=== PATIENT | male | born 1970 | race Caucasian/White ===

== ENCOUNTER → 2024-02-15 | Outpatient (CLI) | payer BC ==
[2024-02-15 12:24] LABS: BASOPHILS ABSOLUTE AUTO 0.03 K/mm3 (0.00-0.23); BASOPHILS PERCENT AUTO 1 % (0-2); EOSINOPHILS ABSOLUTE AUTO 0.24 K/mm3 (0.00-0.68); EOSINOPHILS PERCENT AUTO 4 % (0-6); Hematocrit 43.2 % (37.0-53.0); Hemoglobin 14.5 g/dL (13.5-17.5); IMMATURE GRAN ABSOLUTE AUTO 0.03 K/mm3 (0.00-0.10); IMMATURE GRAN PERCENT AUTO 1 % (0-1); LYMPHOCYTES PERCENT AUTO 21 % (21-46); MONOCYTES ABSOLUTE AUTO 0.44 K/mm3 (0.16-1.47); MONOCYTES PERCENT AUTO 8 % (4-13); Mean Corpuscular HGB 29.7 pg (26.0-34.0); Mean Corpuscular HGB Conc 33.6 g/dL (31.5-36.5); Mean Corpuscular Volume 89 fL (80-100); Mean Platelet Volume 9.1 fL (9.1-12.4); NEUTROPHILS ABSOLUTE AUTO 3.88 K/mm3 (1.96-9.15); NEUTROPHILS PERCENT AUTO 67 % (41-73); Platelet Count 241 K/mm3 (150-400); RDW Coefficient Variation 12.9 % (11.7-14.2); RDW Standard Deviation 41.7 fL (35.1-46.3); Red Blood Cell Count 4.88 M/mm3 (4.30-5.90); White Blood Cell Count 5.82 K/mm3 (4.00-11.30)
== END | disposition home or self-care (01) ==
LOC: LAB SHORT 12:19
PROVIDERS: Physician Assistant Surgical
DX: M79.89 Other specified soft tissue disorders (principal)
CPT/HCPCS: 84550; 85025

== ENCOUNTER 2024-03-10 07:03 | Day surgery (SDC) | payer BC ==
[~2024-03-10] VITALS: Ht 180.3 cm; Wt 137.2 kg
[2024-03-10] MEDS ORDERED: FentaNYL Citrate 50 MCG/ML 2 ML Injection ONE ×3 (08:28→11:50)
[2024-03-10] MEDS ORDERED: Midazolam HCl 1MG / ML 2ML Vial ONE (08:28)
[2024-03-10] MEDS ORDERED: Bupivacaine 0.5% HCl 5 MG/ML 30MLVIAL ONE (08:28)
[2024-03-10] MEDS ORDERED: XARELTO20 MG PO (08:33)
[2024-03-10] MEDS ORDERED: LOSARTAN-HCTZ1 EAC5 PO (08:34)
[2024-03-10] MEDS ORDERED: EUTHYROX125 MCG PO (08:35)
[2024-03-10] MEDS ORDERED: CeFAZolin Sodium 3,000 MG in NS 100 ML IV SCH (08:45)
[2024-03-10] MEDS ORDERED: Lactated Ringer's 1,000 ML IV ONE ×2 (08:46)
[2024-03-10] MEDS ORDERED: propofoL 20 ML IV ONE (09:25)
--- NOTE | 2024-03-10 09:30 | NUR ---
03/10/24 0930 Lilo Leroy PT TOLERATED BLOCK WELL. PULSE OX AND BLOOD PRESSURE WAS MONITORED. DR. MARIN PERFORMED THE BLOCK. VSS, PT ABLE TO MAKE HIS NEEDS KNOWN.
[2024-03-10] MEDS ORDERED: Dexamethasone Sod Phos 10 MG/ML 1ML VIAL ONE (09:39)
[2024-03-10] MEDS ORDERED: Ondansetron HCl 2 MG / ML 2ML Vial ONE (09:49)
--- NOTE | 2024-03-10 09:55 | NUR ---
03/10/24 0955 Tamra Beltran 0.15ML OF EPI (1MG/ML) ADDED TO 0.5% BUPIVACAINE (30ML) TO MAKE BUPIVACAINE 0.5% WITH EPI 1:200,00.
[2024-03-10] MEDS ORDERED: Bupivacaine 0.5% HCl 5 MG/ML 30MLVIAL INJ ONE (10:04)
[2024-03-10] MEDS ORDERED: EPINEPhrine HCl 1 MG/ML 1ML Amp XX ONE (10:04)
[2024-03-10] MEDS ORDERED: HYDROcodone 5-APAP 325 TAB ONE (12:42)
--- NOTE | 2024-03-10 12:54 | NUR ---
03[facility]10/24 1254 [facility] PER ORDERS FROM DR CARY. PATIENT IS TALKING WITH , HAS FOOT ELEVATED WITH ICE PACK BEHIND THE KNEE.
[2024-03-10 15:02] VITALS: BP 152/94
== END 2024-03-10 13:35 | disposition home or self-care (01) ==
LOC: ORSCSDS 07:03
PROVIDERS: Podiatrist Foot & Ankle Surgery
PROC: 0SRP0JZ Replacement of Right Toe Phalangeal Joint with Synthetic Substitute, Open Approach (ICD-10-PCS; principal; 2024-03-10 09:30)
PROC: 0SGK04Z Fusion of Right Tarsometatarsal Joint with Internal Fixation Device, Open Approach (ICD-10-PCS; principal; 2024-03-10 09:30)
PROC: 0QSQ04Z Reposition Right Toe Phalanx with Internal Fixation Device, Open Approach (ICD-10-PCS; principal; 2024-03-10 09:30)
DX: M20.41 Other hammer toe(s) (acquired), right foot (principal); M21.611 Bunion of right foot; I10 Essential (primary) hypertension; D68.9 Coagulation defect, unspecified; G47.33 Obstructive sleep apnea (adult) (pediatric); E66.01 Morbid (severe) obesity due to excess calories; Z68.41 Body mass index [BMI] 40.0-44.9, adult; Z79.01 Long term (current) use of anticoagulants; Z79.899 Other long term (current) drug therapy
CPT/HCPCS: A9270; C1713; J0171; J0690; J1100; J2250; J2405; J2704; J3010